=== PATIENT | female | born 1940 | race Caucasian/White ===

== ENCOUNTER 2019-09-12 12:36 | Emergency (ER) | payer MEDICARE ==
--- NOTE | 2019-09-12 13:05 | EDM.PDOC ---
ED HPI GENERAL MEDICAL PROBLEM - General Chief Complaint: Upper Extremity Injury/Pain Stated Complaint: FALL VIA NORTH Time Seen by Provider: 09/12/19 12:53 Source of Information: Reports: Patient, Family, RN Notes Reviewed History Limitations: Reports: No Limitations - History of Present Illness INITIAL COMMENTS - FREE TEXT/NARRATIVE: 79-year-old female presents emergency department today via EMS services. She fell estimates for 4 steps, she hit her forehead and also is complaining of pain in her left wrist. She denies any loss of consciousness there is no nausea no vomiting she does have a bruise on her forehead and pain is 5 out of 10 on the left wrist left arm Pain Score (Numeric/FACES): 5 - Related Data Allergies Allergy/AdvReac Type Severity Reaction Status Date / Time No Known Allergies Allergy Verified 09/12/19 12:39 Home Meds: Home Meds ARIPiprazole [Abilify] 5 mg PO DAILY 09/12/19 [History] Escitalopram Oxalate [Lexapro] 20 mg PO DAILY 09/12/19 [History] Past Medical History HEENT History: Reports: Hard of Hearing, Impaired Vision Respiratory History: Reports: Other (See Below) Other Respiratory History: "spot on lungs" Musculoskeletal History: Reports: Fracture Psychiatric History: Reports: Anxiety, Depression - Past Surgical History HEENT Surgical History: Reports: Eye Surgery Endocrine Surgical History: Reports: Thyroid Biopsy Social & Family History - Tobacco Use Smoking Status *Q: Never Smoker - Caffeine Use Caffeine Use: Reports: Coffee - Recreational Drug Use Recreational Drug Use: No Review of Systems - Review of Systems Review Of Systems: See Below Constitutional: Reports: No Symptoms Eyes: Reports: No Symptoms Ears: Reports: No Symptoms Nose: Reports: No Symptoms Mouth/Throat: Reports: No Symptoms Respiratory: Reports: No Symptoms Cardiovascular: Reports: No Symptoms GI/Abdominal: Reports: No Symptoms Genitourinary: Reports: No Symptoms Musculoskeletal: Reports: Joint Pain (Wrist pain) Skin: Reports: No Symptoms Neurological: Reports: No Symptoms ED EXAM, GENERAL - Physical Exam Exam: See Below Free Text/Narrative:: Primary survey GCS 15 airways open patent and clear lungs are clear to auscultation bilaterally and cardiovascular demonstrates regular rate and rhythm S1-S2 Secondary survey General: Female, mild amount of distress, alert and oriented x3 HEENT: head is ecchymosis is bruising is appreciated on the forehead left side normocephalic, eyes pupils equal round reactive to light, sclera clear no conjunctivitis appreciated, extraocular eye movements intact. Ears tympanic membranes clear and scott landmarks and light reflex are present bilaterally canals are clear. Nose no septal deviation, nares are clear, no blood present. Mouth mucosa is moist and pink no erythema or exudate noted in soft palate, tongue is midline uvula is midline, dentition is intact. Neck: NO posterior midline C-spine tenderness NO evidence of intoxication GCS > 14 No focal neurological deficit NO distracting injury Nodes: Cervical nodes subclavicular nodes nontender no palpable lymphadenopathy noted. Lungs: clear to auscultation bilaterally with symmetrical respirations, no adventitious noise appreciated. CV: Regular rate and rhythm S1 and S2 appreciated no murmurs rubs or gallops noted. Abdomen: Soft, nontender, no palpable masses or organomegaly appreciated, no distention no guarding bowel sounds are present, [scars ]. Neuro: GCS 15 Skin: Bruising is noted on the forehead skin tear on the left arm Extremities: Tender over the left wrist it is splinted no tenderness shoulders elbows bilaterally right wrist is nontender, pelvic rocks is negative no tenderness to knees or ankles bilaterally no tenderness with internal and external rotation flexion-extension of the hips Course - Vital Signs Last Recorded V/S: Last Vital Signs Temp 98.4 F 09/12/19 12:50 Pulse 118 H 09/12/19 12:50 Resp 17 09/12/19 12:50 BP 161/86 H 09/12/19 12:50 Pulse Ox 96 09/12/19 12:50 - Orders/Labs/Meds Meds: Medications Discontinued Medications Generic Name Dose Route Start Last Admin Trade Name Leticia PRN Reason Stop Dose Admin Bacitracin 2 dose 09/12/19 14:24 09/12/19 14:30 Bacitracin Oint 1 Gm TOP 09/12/19 14:25 2 dose ONETIME ONE Administration Lorazepam 1 mg 09/12/19 14:24 09/12/19 14:30 Ativan PO 09/12/19 14:25 1 mg ONETIME ONE Administration Departure - Departure Time of Disposition: 15:34 Disposition: Home, Self-Care 01 Condition: Fair Clinical Impression: Head injury Qualifiers: Encounter type: initial encounter Qualified Code(s): S09.90XA - Unspecified injury of head, initial encounter Contusion of left wrist Qualifiers: Encounter type: initial encounter Qualified Code(s): S60.212A - Contusion of left wrist, initial encounter Contusion of left ankle Qualifiers: Encounter type: initial encounter Qualified Code(s): S90.02XA - Contusion of left ankle, initial encounter - Discharge Information Instructions: Head Injury, Adult, [id number], Contusion Referrals: PCP,None [Primary Care Provider] - Forms: ED Department Discharge Additional Instructions: Use ibuprofen or Tylenol as needed for pain control, please followup with your primary care provider in 3-5 days if not better, please call return to the emergency department with worsening of symptoms. Sepsis Event Note - Evaluation Sepsis Screening Result: No Definite Risk - Focused Exam Vital Signs: Vital Signs Temp Pulse Resp BP Pulse Ox 09/12/19 12:50 98.4 F 118 H 17 161/86 H 96 Date Exam was Performed: 09/12/19 Time Exam was Performed: 15:33 - Assessment/Plan Plan: Assessment Acuity = acute Site and laterality = trauma with contusions to left wrist left ankle and forehead with head injury Etiology = secondary to a fall Manifestations = none Location of injury = Home Lab values = CT scan of the head, left wrist left ankle show no acute fracture Plan Good improvement with 50 mcg of fentanyl provided intranasally she was able to ambulate around the emergency department after review of x-rays normally she is somewhat weak does use a walker at home plan to discharge home with her brother she will continue to use walker follow-up with primary care in 3 to 5 days if not better This note was dictated using [employer] voice recognition software please call with any questions on syntax or grammar.
--- NOTE | 2019-09-12 13:35 | CT ---
Head wo Cont CLINICAL HISTORY: Fall COMPARISON: None TECHNIQUE: Transverse scans were obtained from the base of the skull through the vertex without IV contrast on a multislice, multidetector CT scanner. Auto dosage reduction and iterative reconstruction techniques employed. FINDINGS: No focal abnormal parenchymal density is identified.. There is no mass effect, hemorrhage, or extraaxial collection. The basal cisterns and sulci over the convexities are prominent. The ventricles are normal for age. There is a hematoma over the left the frontal calvarium. No fracture seen. IMPRESSION: Left frontal scalp hematoma No acute intracranial findings
--- NOTE | 2019-09-12 13:36 | CR ---
Wrist Comp Min 3V Lt CLINICAL HISTORY: Trauma FINDINGS: There is deformity of the distal radius which is likely due to old healed fracture. There is mild deformity of the ulnar styloid. There is moderate osteoarthritis in the first carpometacarpal junction. There is mild osteophytic changes in the carpal junctions. 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
[2019-09-12] MEDS ORDERED: Bacitracin Oint 1 GM U/D Packet TOP ONE (14:24)
[2019-09-12] MEDS ORDERED: LORazepam 1 MG Tab PO ONE (14:24)
--- NOTE | 2019-09-12 15:20 | CR ---
Ankle Min 3V Lt CLINICAL HISTORY: Fall FINDINGS: The soft tissues are swollen laterally. No acute fracture or dislocation is noted. Ankle mortise is intact. Articular surfaces are smooth. Bones appear osteopenic. Impression: Osteopenia Lateral soft tissue swelling No fracture or dislocation
== END 2019-09-12 16:09 | disposition home or self-care (01) ==
LOC: JP.ED 12:36
DX: S00.83XA Contusion of other part of head, initial encounter (principal); S60.212A Contusion of left wrist, initial encounter; S90.02XA Contusion of left ankle, initial encounter; F41.9 Anxiety disorder, unspecified; F32.9 Major depressive disorder, single episode, unspecified; Z79.899 Other long term (current) drug therapy; W10.8XXA Fall (on) (from) other stairs and steps, initial encounter
CPT/HCPCS: 70450; 73110; 73610; 99284; A9270; 99283